=== PATIENT | female | born 1970 | race Caucasian/White ===

== ENCOUNTER 2017-09-27 17:50 | Inpatient (IN) | payer OTHER ==
[2017-09-27] VITALS (8 sets, daily range): BP systolic 154–157
[~2017-09-27] VITALS: Ht 198.1 cm; Wt 88.9 kg
--- NOTE | 2017-09-27 17:50 | NUR ---
BROUGHT IN BY MERGED WITH [facility], PLACED IN BED #[address] BLACK CALLED TO BEDSIDE.
--- NOTE | 2017-09-27 17:55 | NUR ---
Pt BIB ALS s/p tonic-clonic seizure. Per EMS, pt was found at [facility] in one of the aisles having seizure like activity. Pt had seized x3 during transport and was given 10mg Versed. No form of ID found on pt, 2 mg Ativan given upon arrival. Dr. Duvall at bedside.
[2017-09-27] MEDS ORDERED: LORazepam 2 MG/ML VIAL (FOR ER USE) ONE ×3 (18:00→21:11)
[2017-09-27] MEDS ORDERED: LORazepam 2 MG/ML VIAL IVP ONE ×3 (18:00→21:30)
[2017-09-27] MEDS ORDERED: NACL 0.9% 1,000 ML IV ONE (18:00)
[2017-09-27] MEDS ORDERED: ONDANSETRON HCL 4 MG/2 ML VIAL IVP ONE (18:00)
--- NOTE | 2017-09-27 18:00 | NUR ---
Obtunded, non responsive, pupils non reactive, non responsive to sternum rub. MD Dr. Duvall at bedside
--- NOTE | 2017-09-27 18:01 | NUR ---
ROSAS Duvall at bedside examining patient.
--- NOTE | 2017-09-27 18:03 | NUR ---
2 mg ativan IVP given for seizure activity in bed. Pt was shaking. RT called to bedside to prepare to intubate.
--- NOTE | 2017-09-27 18:05 | NUR ---
Patient not known to be of DNR status. Patient medicated with 20 mg Etomidate IVP and 100mg Succinylcholine for sedation prior to placement of ET tube. Respiratory therapy at bedside prior to placement. Size 7.5 ET tube, 22cm at the lip, placed by Dr. Duvall. Cuff inflated with 5 cc air. Auscultation of breath sounds over bilateral chest wall. ET tube secured with ET tube villanueva. O2 sats 99% pulse ox. PCXR ordered to check tube placement.
[2017-09-27] MEDS ORDERED: PROPOFOL DRIP 100 ML IV ONE ×2 (18:09→19:30)
--- NOTE | 2017-09-27 18:10 | NUR ---
Attempted NG tube to L nare without success. Pt vomited and blood came out of nose. RT at bedside. Pt attempting to grab ET tube. notified
--- NOTE | 2017-09-27 18:16 | NUR ---
SPOKE WITH WATCH DEPKASSY [employer], CALLED DUE TO LACK OF INFORMATION ON PT. PT ARRIVED TO ER WITH SET OF CAR KEYS ONLY, DEPUTY WILL ATTEMPT TO FIND CAR AND ANY PT INFO IF AVAILABLE IN CAR.
[2017-09-27] MEDS ORDERED: METOCLOPRAMIDE HCL 10 MG/2 ML VIAL ONE (18:18)
--- NOTE | 2017-09-27 18:25 | NUR ---
# 20 gauge angiocath placed to R hand. Use of asceptic technique. Opsite placed over site. Blood return noted. Flushed with 10 cc of normal saline. No evidence of infiltration noted. Patient tolerated well. Propofol line switched to R hand catheter, infusing with no signs of infiltration.
--- NOTE | 2017-09-27 18:25 | NUR ---
Propofol drip started to L AC at 5mcg. Pt estimated to be 85 kg.
[2017-09-27] MEDS ORDERED: MIDAZOLAM HCL 5 MG/5 ML VIAL ONE (18:27)
--- NOTE | 2017-09-27 18:29 | NUR ---
5mg Versed given. Attempting to pull out intubation tube, thrashing in bed. Propofol increased to 10mcg.
[2017-09-27] MEDS ORDERED: MIDAZOLAM HCL 5 MG/5 ML VIAL IVP ONE (18:30)
--- NOTE | 2017-09-27 18:32 | NUR ---
MD ordered soft restraints, strong radial pulse, cap refill <3.
[2017-09-27 18:37] LABS: BASOPHILS # (AUTO) 0.1 K/uL (0.0-0.2); BASOPHILS % (AUTO) 0.8 % (0.0-2.0); EOSINOPHILS # (AUTO) 0.6 K/uL (0.0-0.4); EOSINOPHILS % (AUTO) 6.1 % (0.0-4.0); HEMATOCRIT 42.6 % (36-48); HEMOGLOBIN 13.9 g/dL (12.0-16.0); LYMPHOCYTES # (AUTO) 2.8 K/uL (1.0-5.5); LYMPHOCYTES % (AUTO) 29.4 % (20.5-51.5); MEAN CORPUSCULAR HEMOGLOBIN 29 pg (27-31); MEAN CORPUSCULAR HGB CONC 33 % (32-36); MEAN CORPUSCULAR VOLUME 87 fL (79.0-98.0); MONOCYTES # (AUTO) 0.7 K/uL (0.0-1.0); MONOCYTES % (AUTO) 7.7 % (1.7-9.3); NEUTROPHILS # (AUTO) 5.4 K/uL (1.8-7.7); PLATELET COUNT (AUTO) 331 K/uL (130-430); RED CELL DISTRIBUTION WIDTH 12.5 % (9.0-15.0); WHITE BLOOD COUNT (AUTO) 9.6 K/uL (4.8-10.8)
--- NOTE | 2017-09-27 18:44 | NUR ---
Pt still resting, gagging, and attempting to pull out tube. Propofol increased to 15 mcg.
[2017-09-27 18:52] LABS: ANION GAP 11 (5-15); CALCIUM 8.7 mg/dL (8.4-11.0); CHLORIDE 106 mmol/L (98-107); CREATININE 0.81 mg/dL (0.55-1.30); GLUCOSE 108 mg/dL (70-99); POTASSIUM 4.1 mmol/L (3.5-5.1); SODIUM SERUM 140 mmol/L (136-145); UREA NITROGEN, BLOOD 13 mg/dL (8-21)
--- NOTE | 2017-09-27 18:57 | NUR ---
Small soft stool cleansed. Underwear removed, clean chux placed. PT was wearing a sanitary pad. # 16 FR Penny catheter with use of sterile technique. Immediate return of 45 cc clear yellow urine noted. Bedside drainage bag placed below level of bladder. Urine sample collected and sent to lab. Pt tolerated procedure well. Patient unable to toilet self due to condition
--- NOTE | 2017-09-27 18:58 | NUR ---
DEPUTY FROM [facility] HERE AND ABLE TO FIND PTS CAR, ANOTHER DEPUTY GOING TO PTS HOUSE TO NOTIFY FAMILY RE: INFORMATION. CELL PHONE AND WALLET GIVEN TO PMD LU. PTS SPOUSE CALLED AND IS ON HIS WAY TO HOSPITAL.
[2017-09-27 19:00] LABS: ALANINE AMINOTRANSFERASE 24 U/L (12-78); ALBUMIN 3.9 g/dL (3.4-4.8); ALCOHOL, BLOOD 10 mg/dL (<10); ASPARTATE AMINOTRANSFERASE 24 U/L (10-37); TOTAL BILIRUBIN 0.2 mg/dL (0.0-1.0)
[2017-09-27 19:01] LABS: ACETAMINOPHEN < 1 ug/mL (1-30)
--- NOTE | 2017-09-27 19:07 | NUR ---
Radiology at bedside attempting CXR, pt still thrashing and attempting to pull out intubation tube, Propofol increased to 20mcg. CXR completed.
[2017-09-27 19:08] LABS: GFR AFRICAN AMERICAN 103 mL/min (>90)
--- NOTE | 2017-09-27 19:30 | NUR ---
Pt soft restraints removed, ROM assessed, skin pink and dry, cap refill <3
--- NOTE | 2017-09-27 19:35 | NUR ---
Pt restraints removed, strong radial pulse, cap refill <3, restraints reapplied. Will continue to monitor.
--- NOTE | 2017-09-27 19:45 | NUR ---
Vent settings A/C 12 Vt 500mL, FiO2 60%
--- NOTE | 2017-09-27 19:51 | NUR ---
Dr. Duvall at bedside updating on pt's condition.
--- NOTE | 2017-09-27 19:59 | NUR ---
at bedside states pt is full code and has allergy to Azithromycin.
[2017-09-27 20:01] LABS: BILIRUBIN,URINE NEGATIVE (NEGATIVE); CLARITY/URINE CLEAR (CLEAR); COLOR,URINE YELLOW (YELLOW); GLUCOSE,URINE NEGATIVE (NEGATIVE); KETONES,URINE NEGATIVE (NEGATIVE); LEUKOCYTE ESTERASE ,URINE NEGATIVE (NEGATIVE); NITRITE, URINE NEGATIVE (NEGATIVE); PH,URINE 5.5 (5.0-8.0); PROTEIN URINE NEGATIVE (NEGATIVE); UROBILINOGEN,URINE 0.2 (0.2-1.0)
[2017-09-27 20:07] LABS: BLOOD, URINE TRACE (NEGATIVE)
[2017-09-27 20:12] LABS: BACTERIA,URINE FEW /HPF (None Seen); MUCUS,URINE 2+ /LPF (None Seen); RBC,URINE 0-3 /HPF (0-3); WBC,URINE 0-3 /HPF (0-3)
[2017-09-27 20:13] LABS: BARBITURATE, URINE NEGATIVE (NEG <=200); BENZODIAZEPINE, URINE POSITIVE (NEG <=150); COCAINE, URINE NEGATIVE (NEG <=150); METHAMPHETAMINES SCREEN,URINE NEGATIVE (NEG <=500); URINE AMPHETAMINE NEGATIVE (NEG <=500); URINE METHADONE NEGATIVE (NEG <=200)
[2017-09-27 20:14] LABS: CANNABINOID, URINE NEGATIVE (NEG <=50); OPIATE, URINE NEGATIVE (NEG <=100); PHENCYCLIDINE SCREEN,URINE NEGATIVE (NEG <=25); UR TRICYCLIC ANTIDEPRESSANTS NEGATIVE (NEG <=300); URINE OXYCODONE SCREEN NEGATIVE (NEG <=100); URINE PROPOXYPHENE SCREEN NEGATIVE (NEG <=300)
[2017-09-27] MEDS ORDERED: FLUO40CA8 PO (20:25)
[2017-09-27] MEDS ORDERED: VENL37.510 PO (20:25)
--- NOTE | 2017-09-27 20:36 | NUR ---
Pt restraints removed, skin pink and dry, strong radial pulse, cap refill <3. Restraints reapplied. Pt still attempting to pull out ET tube.
--- NOTE | 2017-09-27 20:57 | NUR ---
Occlusion in propfol drip noted, titrated to 15mcg/kg/min. Addendum: 09/27/17 at 2058 by [email or web address] Pt still kicking and attempting to raise arms. CT scan and admission to ICU is held until pt is calm.
--- NOTE | 2017-09-27 21:10 | NUR ---
2mg Ativan IVP administered per md order. Pt still thrashing and kicking. Unable to do CT scan augustine. at bedside.
--- NOTE | 2017-09-27 21:40 | NUR ---
Patient will be admitted to [facility]. Admitted to ICU unit. Will go to room 5. Belongings list completed. Summary report printed. Report will be given at bedside.
--- NOTE | 2017-09-27 21:45 | NUR ---
Admitted 47/F from ER via [facility] to ICU 5 with Acute Onset of Tonic clonic seizure of Dr. Coleman. Patient very restless with bilateral soft wrist restraint on with Propofol infusing to right hand AC #20 at 15 mcg/kg/min. Increased to 50 mcg/kg/min. Orally intubated with 7.5 ETT at 22 cm lip marked with ventilator settings as follows: AC 12, TV 500 and FiO2 60%. ABG was done vent changes as follows SIMV 10, TV 500, FiO2 40%, PS 10 and PEEP +5. Saturating 98-100% by pulse oximeter. Dr. Coleman here and Dr. Haider, both examined patient. Orders made and carried out. Admission care rendered.
--- NOTE | 2017-09-27 22:00 | NUR ---
DR HALE EXCHANGE NOTIFIED OF CONSULT.DR SOOD ASSISTANT PROFESSOR OF ART.TALKED TO BOUBACAR
[2017-09-27] MEDS ORDERED: LORazepam 2 MG/ML VIAL IM PRN (23:00)
[2017-09-27] MEDS ORDERED: LORazepam 2 MG/ML VIAL IVP PRN (23:00)
[2017-09-27] MEDS ORDERED: ONDANSETRON HCL 4 MG/2 ML VIAL IVP PRN (23:15)
[2017-09-27] MEDS: LORazepam 2 MG/ML VIAL IVP PRN (23:37)
[2017-09-27] MEDS: D5LR 1,000 ML IV SCH (23:39)
[2017-09-28] VITALS (32 sets, daily range): BP systolic 120–156
--- NOTE | 2017-09-28 | NUR ---
at bedside updates given. Condition unchanged.
[2017-09-28] MEDS ORDERED: AMPICILLIN SODIUM/SULBACTAM NA 1.5 GM VIAL ONE (00:26)
[2017-09-28] MEDS: levETIRAcetam 500 MG in NS 100 ML IV SCH ×2 (00:56→09:00)
[2017-09-28] MEDS: AMPICILLIN SODIUM/SULBACTAM NA 1.5 GM in NS 50 ML IV SCH ×4 (00:57→18:27)
[2017-09-28] MEDS: LEVALBUTEROL HCL 0.63 MG/3 ML VIAL.NEB INH SCH ×4 (01:11→20:46)
[2017-09-28] MEDS: LORazepam 2 MG/ML VIAL IVP PRN ×2 (03:59→15:45)
[2017-09-28] MEDS: PROPOFOL DRIP 100 ML IV PRN ×3 (03:59→12:32)
--- NOTE | 2017-09-28 04:00 | NUR ---
Very restless. V/S stable. Ativan 2 mg IVP given. Bilateral soft wrist restraint on.
[2017-09-28 07:12] LABS: CALCIUM 8.6 mg/dL (8.4-11.0); CREATININE 0.79 mg/dL (0.55-1.30); POTASSIUM 3.5 mmol/L (3.5-5.1)
[2017-09-28 07:14] LABS: EOSINOPHILS # (AUTO) 0.1 K/uL (0.0-0.4); EOSINOPHILS % (AUTO) 0.9 % (0.0-4.0); HEMATOCRIT 39.6 % (36-48); HEMOGLOBIN 13.4 g/dL (12.0-16.0); LYMPHOCYTES # (AUTO) 0.9 K/uL (1.0-5.5); LYMPHOCYTES % (AUTO) 7.5 % (20.5-51.5); MEAN CORPUSCULAR HEMOGLOBIN 30 pg (27-31); MEAN CORPUSCULAR HGB CONC 34 % (32-36); MEAN CORPUSCULAR VOLUME 87 fL (79.0-98.0); MONOCYTES # (AUTO) 0.9 K/uL (0.0-1.0); MONOCYTES % (AUTO) 7.2 % (1.7-9.3); NEUTROPHILS # (AUTO) 10.6 K/uL (1.8-7.7); NEUTROPHILS % (AUTO) 84.4 % (40.0-70.0); PLATELET COUNT (AUTO) 280 K/uL (130-430); RED BLOOD CELL COUNT(AUTO) 4.55 MIL/uL (4.2-6.2); RED CELL DISTRIBUTION WIDTH 12.4 % (9.0-15.0); WHITE BLOOD COUNT (AUTO) 12.5 K/uL (4.8-10.8)
--- NOTE | 2017-09-28 07:23 | NUR ---
ENDORSEMENT BEDSIDE REPORT GIVEN TO LIS COX USING SBAR APPROACH.
--- NOTE | 2017-09-28 07:30 | NUR ---
AM ROUNDS RECEIVED PT UP IN BED. SEDATED, RESPONDS TO TACTILE STIMULATION. BREATHING IS EVEN AND UNLABORED ON MECHANICAL VENT. ET TUBE 7.5, 22CM AT THE LIPLINE. DIPRIVAN DRIP IS RUNNING AT 50MCG. LANGLEY IS 4. F/C IS DRAINING PINK TINGED URINE TO GRAVITY. PIV TO RT HAND AND LAC. IVF RUNNING WITHOUT INCIDENT. B/L SCDS IN PLACE. CALL LIGHT IS WITHIN REACH. ORAL CARE PROVIDED, ENDOTRACHEAL SUCTIONING PROVIDED. WILL MONITOR CLOSELY, PT IS UNABLE TO PERFORM RD OF CALL LIGHT.
[2017-09-28 07:40] LABS: ALBUMIN 3.7 g/dL (3.4-4.8); TOTAL BILIRUBIN 0.4 mg/dL (0.0-1.0)
[2017-09-28] MEDS: D5LR 1,000 ML IV SCH ×2 (08:25→15:46)
--- NOTE | 2017-09-28 08:42 | NUR ---
Nutrition Update Robert Scale 15 noted. Pt admitted for status epilepticus Diet: no diet order BMI: 226.7 kg/m2 RD to follow per nutrition care standards.
[2017-09-28 09:08] LABS: ERYTHROCYTE SEDIMENTATION RATE 7 MM/HR (0-20)
--- NOTE | 2017-09-28 11:40 | NUR ---
HERE DR HINDS HERE TO SEE PT. MADE MD AWARE FAMILY IS REFUSING KEPPRA SINCE PT HAS HX OF PSEUDO SEIZURES. REPORTS HAVING PT CHECKED AT [facility], [facility]- ALL 3 NEUROLOGIST DX PT WITH PSEUDOSEIZURES. MD AGREED TO DISCONTINUE KEPPRA AND ENCOURAGED TO EXTUBATE PT. WILL MAKE JOHANA VICK AWARE.
--- NOTE | 2017-09-28 11:50 | NUR ---
HERE DR CHEUNG, [facility], HERE TO SEE PT. MADE AWARE OF MERISSA ENCOURAGEMENT TO EXTUBATE. DR CHEUNG STATED HE IS NO LONGER COVERING SINCE DR HALE IS BACK IN THE OFFICE. WILL F/U WITH DR HALE
--- NOTE | 2017-09-28 14:00 | NUR ---
Case mgt: Call placed to [facility] dept at [phone] to find out who is the assigned showcase trimmer--placed on hold--MIA COX
--- NOTE | 2017-09-28 14:43 | NUR ---
Case Mgt: I left message earlier at 1400 with Amarjit at [facility]--he said outpatient case manager assigned is Sancho, who is currently unavailable to speak with. Per Amarjit, they received 38 pages faxed to them from our UR department and case is being reviewed. I told Amarjit pt remains intubated on ventilator and not stable for transfer yet per Dr. Coleman. I gave Amarjit Coleman's cell# for MD to MD if they need MDs to speak with each other. MIA RN
--- NOTE | 2017-09-28 14:48 | NUR ---
CPAP DR HALE, [facility], HERE TO SEE PT. VENT DECREASED TO CPAP SETTING. CPAP 5, PS 10. PT IS BÁRBARA WELL. SATURATION IS 100%
--- NOTE | 2017-09-28 16:45 | NUR ---
Case mgt: I called [facility] again and transferred to butter maker Sancho at [phone]--He said pt is authorized for inpt stay through tomorrow. I updated him with clinical and that Dr. Coleman had said pt not stable for transfer to [facility] today. MIA RN
[2017-09-28] MEDS ORDERED: ETOMIDATE 20 MG/ 10 ML VIAL (AMIDATE) IVP ONE (17:00)
[2017-09-28] MEDS ORDERED: SUCCINYLCHOLINE CHLORIDE 20 MG/ML(QUELICIN) IVP ONE (17:00)
--- NOTE | 2017-09-28 17:47 | NUR ---
PT EXTUBATED @1730, PLACED ON 2L NASAL CANNULA. RN AWARE. Addendum: 09/28/17 at 1752 by Saira Cote RT Amended: Links added.
--- NOTE | 2017-09-28 18:45 | NUR ---
CLOSING NOTE PT RESTING IN BED. TOLERATING EXTUBATION WELL. VSS. IS AT BEDSIDE. ALL NEEDS MET
--- NOTE | 2017-09-28 20:00 | NUR ---
ASSUMPTION OF CARE REPORT RECEIVED FROM LIS COX. PT RECEIVED IN BED WITH EYES CLOSED, VSS, NO SIGNS OF DISTRESS NOTED. AT BEDSIDE. PT ON 2L NC, SATURATING 100%. ST ON MONITOR. LAC 20G INFUSING D5LR @ 120 CC/HR, R HAND 20G TO SALINE LOCK. HUNTLEY CATH IN PLACE DRAINING PINK TINGED URINE TO GRAVITY. PT REFUSES SCDs SAYING THEY "HURT", SCDs TAKEN OFF. BED IN LOWEST POSITION, CALL LIGHT IN REACH. WILL CONTINUE TO MONITOR.
[2017-09-28] MEDS ORDERED: KETOROLAC TROMETHAMINE 15 MG VIAL ONE (22:22)
[2017-09-28] MEDS: FAMOTIDINE PF 20 MG/2 ML VIAL ONE ×2 (22:23→22:33)
--- NOTE | 2017-09-28 22:23 | NUR ---
C/O PAIN PT COMPLAINS OF 9/10 GENERALIZED PAIN. TORADOL GIVEN PER ORDERS.
[2017-09-28] MEDS ORDERED: FAMOTIDINE PF 20 MG/2 ML VIAL IVP ONE (23:15)
[2017-09-29] VITALS (8 sets, daily range): BP systolic 117–142
[2017-09-29] MEDS: AMPICILLIN SODIUM/SULBACTAM NA 1.5 GM in NS 50 ML IV SCH ×4 (00:03→17:17)
[2017-09-29] MEDS: LEVALBUTEROL HCL 0.63 MG/3 ML VIAL.NEB INH SCH (01:27)
--- NOTE | 2017-09-29 02:55 | NUR ---
RN ROUNDS PT IN BED ASLEEP AND SNORING. VSS, NO SIGNS OF DISTRESS NOTED AT THIS TIME. WILL CONTINUE TO MONITOR.
[2017-09-29] MEDS: D5LR 1,000 ML IV SCH ×3 (04:16→20:00)
[2017-09-29 06:53] LABS: BASOPHILS % (AUTO) 0.3 % (0.0-2.0); EOSINOPHILS # (AUTO) 0.5 K/uL (0.0-0.4); EOSINOPHILS % (AUTO) 6.1 % (0.0-4.0); HEMATOCRIT 36.4 % (36-48); HEMOGLOBIN 12.3 g/dL (12.0-16.0); LYMPHOCYTES # (AUTO) 1.7 K/uL (1.0-5.5); LYMPHOCYTES % (AUTO) 22.3 % (20.5-51.5); MEAN CORPUSCULAR HEMOGLOBIN 30 pg (27-31); MEAN CORPUSCULAR HGB CONC 34 % (32-36); MEAN CORPUSCULAR VOLUME 88 fL (79.0-98.0); MONOCYTES # (AUTO) 0.7 K/uL (0.0-1.0); MONOCYTES % (AUTO) 9.2 % (1.7-9.3); NEUTROPHILS # (AUTO) 4.8 K/uL (1.8-7.7); NEUTROPHILS % (AUTO) 62.1 % (40.0-70.0); PLATELET COUNT (AUTO) 247 K/uL (130-430); RED BLOOD CELL COUNT(AUTO) 4.12 MIL/uL (4.2-6.2); RED CELL DISTRIBUTION WIDTH 12.5 % (9.0-15.0); WHITE BLOOD COUNT (AUTO) 7.7 K/uL (4.8-10.8)
[2017-09-29 07:16] LABS: CALCIUM 8.5 mg/dL (8.4-11.0); CREATININE 0.61 mg/dL (0.55-1.30); POTASSIUM 3.1 mmol/L (3.5-5.1)
--- NOTE | 2017-09-29 07:24 | NUR ---
ENDORSEMENT REPORT GIVEN TO CAROLINE COX USING SBAR APPROACH.
--- NOTE | 2017-09-29 07:34 | NUR ---
ASSUMPTION OF CARE RECEIVED REPORT FROM CARMINA COX. PT IN BED WITH EYES CLOSED, RESPONDING TO VERBAL STIMULATION, AAOx4, ABLE TO VERBALIZE NEEDS. VSS, NO SIGNS DISTRESS NOTED. SR ON MONITOR. O2 SAT 100% ON 2LNC. HUNTLEY IN PLACE DRAINING URINE TO GRAVITY. 20G LEFT AC IV WITH D5LR@120ML/HR INFUSING, NO SIGNS INFILTRATION NOTED. PT C/O GENERALIZED PAIN AT THIS TIME, WILL MEDICATE APPROPRIATELY. HOB ELEVATED, BED LOCKED AND IN LOWEST POSITION, CALL LIGHT IN REACH. WILL CONTINUE TO MONITOR.
[2017-09-29] MEDS: FAMOTIDINE PF 20 MG/2 ML VIAL IVP SCH ×2 (08:01→20:43)
[2017-09-29] MEDS: KETOROLAC TROMETHAMINE 15 MG VIAL IVP PRN ×3 (08:02→22:13)
--- NOTE | 2017-09-29 10:46 | NUR ---
ROUNDS DR HINDS HERE TO EVALUATE PT. SPOKE TO [facility] ON PHONE REGARDING PT BEING STABLE FOR TRANSFER TO [facility] TELE. MADE AWARE OF POTASSIUM LEVEL 3.1, MD TO ORDER REPLACEMENT.
[2017-09-29] MEDS ORDERED: POTASSIUM CHLORIDE 40 MEQ, LIDOCAINE JECT 2% PF 100 MG 50 MG in NS 250 ML IV ONE (11:00)
--- NOTE | 2017-09-29 11:32 | NUR ---
Case mgt: Rec'd transfer to [facility] order--telemetry bed-- this am--I s/w Sancho at [facility]--faxed him transfer order and discharge summary--Sancho said he will look for bed at [facility] first, but likely no beds there and will also look for bed at [facility] or [facility]--Pt's Mr. Traylor made aware of this transfer and that staff will call him once we get the bed assignment and location--Nurse Elizabeth made aware and transfer packet/x ray cd placed at ICU nurse station--MIA COX
--- NOTE | 2017-09-29 12:00 | NUR ---
TRANFER TRANSFER TO TELE WITH TWO RNs, PT ON PORTABLE MONITOR, VSS, NO SIGNS DISTRESS NOTED. Addendum: 09/29/17 at 1233 by Clara Leo RN RN TRANSFERRED TO TELE WITH PT, WILL RESUME CARE OF PT.
--- NOTE | 2017-09-29 13:29 | NUR ---
Case mgt: I called [facility] at [phone]--per Dominique, no bed yet at [facility]--[facility] was updated that pt was transferred to room 101A tele, and given nursing unit ph#--Per Dominique, she is faxing us a checklist to put with transfer packet--MIA COX
--- NOTE | 2017-09-29 13:37 | NUR ---
ROUNDS PT C/O 5 GENERALIZED PAIN, WILL MEDICATE APPROPRIATELY.
--- NOTE | 2017-09-29 15:36 | NUR ---
ROUNDS PT AWAKE, SITTING UP IN BED. AT BEDSIDE. PT STATES PAIN IS AT TOLERABLE LEVEL AFTER TORADOL ADMINISTRATION. NO SIGNS DISTRESS NOTED. WILL CONTINUE TO MONITOR.
[2017-09-29] MEDS: LORazepam 2 MG/ML VIAL IVP PRN (16:19)
--- NOTE | 2017-09-29 16:20 | NUR ---
ATIVAN PT APPEARS RESTLESS/AGITATED, PT C/O ANXIETY. ATIVAN 2MG IVP GIVEN TO PT, WILL CONTINUE TO MONITOR.
--- NOTE | 2017-09-29 18:12 | NUR ---
END OF SHIFT PT LYING IN BED WITH EYES CLOSED, RISE AND FALL OF CHEST, RESPONDING TO VERBAL STIMULATION. PT DENIES PAIN AT THIS TIME, APPEARS COMFORTABLE. PT ON 2LNC, NORMAL RESPIRATIONS OBSERVED. HUNTLEY DRAINING URINE TO GRAVITY. SCDs IN PLACE. 20G LEFT AC IV WITH D5LR AT 120ML/HR INFUSING, NO SIGNS INFILTRATION NOTED. BED LOCKED AND IN LOWEST POSITION, CALL LIGHT IN REACH.
== END 2017-09-30 00:15 | disposition short-term general hospital (02) | DRG 133 ==
LOC: SED 17:50 → SIC 20:32 → EDBD 20:32 → SIC 21:40 → STU 09-29 12:20
PROVIDERS: ADMIT Internal Medicine; ATTEND Internal Medicine
PROC: 0BH17EZ Insertion of Endotracheal Airway into Trachea, Via Natural or Artificial Opening (ICD-10-PCS; principal; 2017-09-27)
PROC: 5A1935Z Respiratory Ventilation, Less than 24 Consecutive Hours (ICD-10-PCS; 2017-09-27)
DX: J96.00 Acute respiratory failure, unspecified whether with hypoxia or hypercapnia (principal); G40.409 Other generalized epilepsy and epileptic syndromes, not intractable, without status epilepticus; F32.9 Major depressive disorder, single episode, unspecified; J45.909 Unspecified asthma, uncomplicated; Z79.899 Other long term (current) drug therapy; Z88.1 Allergy status to other antibiotic agents
CPT/HCPCS: 36415; 36600; 70450-TC; 71010; 80048; 80053; 80307; 81000-TC; 82803-TC; 83735-TC; 84484; 85025; 85651-TC; 87081; 93005; 94002; 94003; 94640; 95816; 96361; 96374; 99285; G0480; G0481; G0482; J0295; J0330; J1885; J1953; J2060; J2250; J2405; J2704; J2765; J3480; J3490; J7030; J7050; J7060; J7120